=== PATIENT | female | born 1930 | race Caucasian/White ===

== ENCOUNTER → 2017-01-06 15:39 | Outpatient (CLI) | payer MEDICARE ==
[2015-03-15 15:59] VITALS: BMI 37.3
[~2017-01-06 15:39] MED LIST: COREG12.5 MG PO; FOLTX TABLET1 EACH PO; HYDROCHLOROTH12.5 M1 PO; MACRODANTIN50 MG; NEURONTIN 300300 MG PO; PLAVIX75 MG PO; PROBIOTIC1 EAC1 PO; PROPOLIS PO; PROTONIX20 MG PO; ULTRAM50 MG PO; ZYLOPRIM100 MG PO
[2017-01-07 11:28] LABS: APPEARANCE CLOUDY (CLEAR); BILIRUBIN NEGATIVE (NEGATIVE); COLOR YELLOW (YELLOW); GLUCOSE NEGATIVE (NEGATIVE); KETONE NEGATIVE (NEGATIVE); LEUKOCYTE ESTERASE 2+ (NEGATIVE); NITRITE POSITIVE (NEGATIVE); PROTEIN TRACE mg/dL (NEGATIVE); SPECIFIC GRAVITY 1.015 (1.005-1.020); UROBILINOGEN NORMAL (NORMAL); WHITE CELLS - URINE >50 /hpf (0-5)
[2017-01-07 11:29] LABS: BACTERIA MANY /hpf (NONE SEEN); EPITHELIAL CELLS 0-5 /hpf (0-5); MUCUS <1+ /lpf (NONE SEEN); RED CELLS - URINE RARE /hpf (0-5)
== END | disposition home or self-care (01) ==
LOC: D.LABREF 15:39
PROVIDERS: Student in an Organized Health Care Education/Training Program
DX: R30.0 Dysuria (principal)